=== PATIENT | female | born 1980 ===

== ENCOUNTER 2018-01-05 16:05 | Inpatient (IN) | payer OTHER ==
[~2018-01-05] VITALS: Ht 170.2 cm; Wt 97.5 kg
[~2018-01-05 16:05] MED LIST: VISTARIL25 MG PO
[2018-01-11] MEDS ORDERED: PRENATAL 19 TA1 EAC1 (11:55)
[2018-01-15] MEDS ORDERED: SURFAK240 M1 PO (15:06)
[2018-01-15] MEDS ORDERED: PERCOCET 5-3251 EACH PO (15:06)
== END 2018-01-15 19:27 | disposition home or self-care (01) | DRG 786 ==
LOC: LDR 16:05 → OB/GYN 01-07 15:48
PROVIDERS: Obstetrics & Gynecology
PROC: 4A1HXCZ Monitoring of Products of Conception, Cardiac Rate, External Approach (ICD-10-PCS; 2018-01-06)
PROC: 10D00Z1 Extraction of Products of Conception, Low, Open Approach (ICD-10-PCS; principal; 2018-01-06 07:00)
DX: O76 Abnormality in fetal heart rate and rhythm complicating labor and delivery (principal); O60.14X0 Preterm labor third trimester with preterm delivery third trimester, not applicable or unspecified; O14.14 Severe pre-eclampsia complicating childbirth; Z3A.34 34 weeks gestation of pregnancy; Z37.0 Single live birth; O14.15 Severe pre-eclampsia, complicating the puerperium